=== PATIENT | female | born 1980 | race Caucasian/White ===

== ENCOUNTER 2022-07-21 08:35 | Outpatient (CLI) | payer BC, OTHER, SELFPAY ==
[2022-07-21 19:03] LABS: Basophils Percent Auto 0.5 % (0.2-1.2); Eosinophils Absolute Auto 0.2 K/mm3 (0-0.3); Eosinophils Percent Auto 2.6 % (0-4.4); Hematocrit 43.7 % (37.0-47.0); Hemoglobin 13.8 g/dL (12.0-15.0); Hemoglobin A1C 5.5 % (<5.7); Immature Granulocyte Absolute 0.01 K/mm3 (0.00-0.031); Immature Granulocyte Percent A 0.1 % (0-0.5); Lymphocytes Absolute Auto 1.95 K/mm3 (0.9-3.2); Lymphocytes Percent Auto 22.1 % (18.3-44.2); Mean Corpuscular HGB Conc 31.6 g/dl (32-36); Mean Corpuscular Hemoglobin 29.9 pg (26-34); Mean Corpuscular Volume 94.6 fl (80-100); Mean Platelet Volume 9.5 fl (7.4-10.4); Monocytes Absolute Auto 0.4 K/mm3 (0.1-0.6); Monocytes Percent Auto 4.5 % (2.6-8.5); Neutrophils Absolute Auto 6.2 K/mm3 (1.3-6.7); Neutrophils Percent Auto 70.2 % (45.5-73.1); Platelet Count Result 234 k/mm3 (150-375); Red Blood Count 4.62 M/mm3 (4.2-5.4); White Blood Count 8.8 K/mm3 (4.5-10.0)
[2022-07-21 20:07] LABS: Alanine Aminotransferase 19 U/L (6-35); Albumin Level 4.4 g/dL (3.5-5.1); Alkaline Phosphatase 82 U/L (38-126); Anion Gap 12 mmol/L (8-16); Aspartate Amino Transferase 20 U/L (14-36); Bilirubin,Total 0.6 mg/dL (0.2-1.3); Blood Urea Nitrogen 12 mg/dL (7-17); Calcium 8.9 mg/dL (8.4-10.2); Carbon Dioxide 22 mmol/L (22-30); Chloride 104 mmol/L (98-107); Cholesterol 196 mg/dL (0-200); Estimated Glomerular Filt Rate > 60; Glucose 88 mg/dL (65-110); HDL Direct 52 mg/dL; Potassium 3.7 mmol/L (3.4-5.0); Sodium 138 mmol/L (137-145); Triglycerides 212 mg/dL (<150)
[2022-07-21 20:19] LABS: LDL Cholesterol Direct 106 mg/dL
[2022-07-21 20:37] LABS: Thyroid Stimulating Hormone 0.635 uIU/mL (0.465-4.680)
== END 2022-07-21 08:36 | disposition home or self-care (01) ==
LOC: ANHGOSHLAB 08:39
PROVIDERS: PCP Family Medicine; Visit Provider Family Medicine
DX: R53.83 Other fatigue (principal); Z00.00 Encounter for general adult medical examination without abnormal findings
CPT/HCPCS: 36415; 80053; 80061; 82607; 83036; 84443; 85025

== ENCOUNTER 2023-09-02 09:04 | Outpatient (CLI) | payer BC, SELFPAY ==
[2023-09-02 12:04] LABS: Basophils Percent Auto 0.7 % (0.2-1.2); Eosinophils Absolute Auto 0.2 K/mm3 (0-0.3); Eosinophils Percent Auto 4.6 % (0-4.4); Hematocrit 41.4 % (37.0-47.0); Hemoglobin 13.9 g/dL (12.0-15.0); Immature Granulocyte Absolute 0.01 K/mm3 (0.00-0.031); Immature Granulocyte Percent A 0.2 % (0-0.5); Lymphocytes Absolute Auto 1.54 K/mm3 (0.9-3.2); Lymphocytes Percent Auto 33.8 % (18.3-44.2); Mean Corpuscular HGB Conc 33.6 g/dl (32-36); Mean Corpuscular Hemoglobin 31.2 pg (26-34); Mean Platelet Volume 9.7 fl (7.4-10.4); Monocytes Absolute Auto 0.4 K/mm3 (0.1-0.6); Monocytes Percent Auto 8.6 % (2.6-8.5); Neutrophils Absolute Auto 2.4 K/mm3 (1.3-6.7); Neutrophils Percent Auto 52.1 % (45.5-73.1); Platelet Count Result 236 k/mm3 (150-375); Red Blood Count 4.45 M/mm3 (4.2-5.4); Red Cell Distribution Width 12.9 % (11.5-14.5); White Blood Count 4.6 K/mm3 (4.5-10.0)
[2023-09-02 12:08] LABS: Alanine Aminotransferase 31 U/L (6-35); Albumin Level 4.2 g/dL (3.5-5.1); Alkaline Phosphatase 77 U/L (38-126); Anion Gap 11 mmol/L (8-16); Aspartate Amino Transferase 37 U/L (14-36); Blood Urea Nitrogen 17 mg/dL (7-17); Calcium 9.2 mg/dL (8.4-10.2); Carbon Dioxide 25 mmol/L (22-30); Chloride 104 mmol/L (98-107); Cholesterol 182 mg/dL (0-200); Estimated Glomerular Filt Rate > 60; Glucose 93 mg/dL (65-110); HDL Direct 40 mg/dL; Potassium 4.2 mmol/L (3.4-5.0); Sodium 140 mmol/L (137-145); Triglycerides 90 mg/dL (<150)
[2023-09-02 12:19] LABS: LDL Cholesterol Direct 100 mg/dL
== END 2023-09-02 09:05 | disposition home or self-care (01) ==
LOC: ANHGOSHLAB 09:05
PROVIDERS: PCP Family Medicine; Visit Provider Family Medicine
DX: R53.83 Other fatigue (principal)
CPT/HCPCS: 36415; 80053; 80061; 82607; 82728; 84443; 85025

== ENCOUNTER 2024-07-25 15:47 | Observation (INO) | payer OTHER, SELFPAY ==
--- NOTE | ~2024-07-25 | CT_ITS ---
EXAMINATION: CT abdomen pelvis w con DATE: 07/25/2024 17:02 INDICATION: Abdominal pain. TECHNIQUE: Computed tomography (CT) of the abdomen and pelvis was performed with 100 mL Omnipaque 350 intravenous contrast. Automated exposure control and iterative reconstruction technique were employe d. The dose-length product was 440.40 mGy-cm. COMPARISON: CT abdomen and pelvis 03/13/2015 FINDINGS: The visualized portions of the lung bases demonstrate mild atelectasis. No pleural effusion . The heart size is normal. No pericardial effusion. There is a 4 mm cyst in the liver. The gallbladd er, spleen, pancreas, adrenal glands, and kidneys are normal. The appendix is fluid-filled and dilate d to 13 mm, consistent with acute appendicitis. There are no pathologically enlarged lymph nodes. The re is physiologic fluid in the pelvis. There is mild thoracic and lumbar spondylosis. IMPRESSION: 1. Acute appendicitis. Reviewed, dictated and finalized at location A. IMPRESSION: 1. Acute appendicitis.
[2024-07-25 15:52] VITALS: BP 113/59; PULSE 64; RESP 16; TEMP 36.5; O2SAT 100
[2024-07-25 16:24] LABS: Basophils Percent Auto 0.1 % (0.2-1.2); Eosinophils Percent Auto 0.1 % (0-4.4); Hematocrit 42.2 % (37.0-47.0); Hemoglobin 14.4 g/dL (12.0-15.0); Immature Granulocyte Absolute 0.04 K/mm3 (0.00-0.031); Immature Granulocyte Percent A 0.3 % (0-0.5); Lymphocytes Absolute Auto 0.72 K/mm3 (0.9-3.2); Lymphocytes Percent Auto 5.1 % (18.3-44.2); Mean Corpuscular HGB Conc 34.1 g/dl (32-36); Mean Corpuscular Volume 90.8 fl (80-100); Mean Platelet Volume 9.4 fl (7.4-10.4); Monocytes Absolute Auto 0.3 K/mm3 (0.1-0.6); Neutrophils Absolute Auto 13.1 K/mm3 (1.3-6.7); Neutrophils Percent Auto 92.4 % (45.5-73.1); Platelet Count Result 219 k/mm3 (150-375); Red Blood Count 4.65 M/mm3 (4.2-5.4); Red Cell Distribution Width 12.8 % (11.5-14.5); White Blood Count 14.2 K/mm3 (4.5-10.0)
[2024-07-25 16:25] VITALS: BP 137/81; PULSE 56; RESP 14; O2SAT 100
[2024-07-25 16:28] LABS: BEDSIDEPREGUCG Negative (Negative)
[2024-07-25 16:35] LABS: Add Urine Microscopic? YES; Appearance Urine Turbid (Clear); Bacteria Urine None Seen /hpf; Bilirubin Urine Negative (Negative); Blood Urine Negative (Negative); Color Urine Yellow (Yellow); Glucose Urine UA Negative (Negative); Ketones Urine 3+ mg/dL (Negative); Leukocyte Esterase Ur Negative LEU/UL (Negative); Nitrate Urine Negative (Negative); Non Pathogenic Casts 0-2; Protein Urine Trace mg/dL (Negative); Specific Grav Ur 1.019 (1.001-1.035); Squamous Epithelial Cell Urine Few /hpf (Few); Urobilinogen Urine 0.2 mg/dL (<2.0); WBC Urine 0-5 /hpf (0-3); pH Urine 8.5 (5.0-9.0)
[2024-07-25 16:37] LABS: Alanine Aminotransferase 20 U/L (6-35); Albumin Level 4.6 g/dL (3.5-5.1); Alkaline Phosphatase 83 U/L (38-126); Anion Gap 12 mmol/L (4-12); Aspartate Amino Transferase 27 U/L (14-36); Bilirubin,Total 0.9 mg/dL (0.2-1.3); Blood Urea Nitrogen 15 mg/dL (7-17); Calcium 9.3 mg/dL (8.4-10.2); Carbon Dioxide 26 mmol/L (22-30); Chloride 100 mmol/L (98-107); Estimated CRCL calculation 97 ml/min; Estimated Glomerular Filt Rate > 60; Glucose 145 mg/dL (65-110); Lipase 77 U/L (23-300); Potassium 3.7 mmol/L (3.4-5.0); Prothrombin Time 13.4 Seconds (11.1-14.7); Sodium 138 mmol/L (137-145)
[2024-07-25 16:38] LABS: Partial Thromboplastin Time 22.7 Seconds (22.3-36.8)
--- NOTE | 2024-07-25 16:48 | ED.GENADULT ---
HPI - General Adult General Chief complaint: Abdominal Pain Stated complaint: abdominal pain Time Seen by Provider: 07/25/24 16:00 History of Present Illness HPI narrative: 44-year-old female presenting to the emergency department for evaluation for worsening periumbilical abdominal pain. Patient states she began having pain earlier today and the pain has worsened. Patient states he did try some Tums and this did not help. Patient also had associated nausea and vomiting. Patient denies any prior history of abdominal surgeries. She does have prior history of kidney stones. Patient denies any prior history gastritis or esophagitis. Patient does have history of aortic stenosis with a bicuspid aortic valve but patient has not had any valve repair. Coarctation of aorta at age 7. Related Data Home Medications Medication Instructions Recorded Confirmed No Home Medications 06/28/24 07/25/24 Allergies Allergy/AdvReac Type Severity Reaction Status Date / Time No Known Allergies Allergy Verified 07/25/24 16:12 Review of Systems Review of Systems: All systems reviewed & are unremarkable except as noted in HPI and below PMFSH Past Medical History Medical History Bicipital tendonitis of right shoulder Coarctation of aorta s/p end to end anastomosis repair 1987, at age 7 2014 normal brai MRA 2015 MRA chest: no evidence of aortic dilatation nor residual coarctation Former cigarette smoker quit 2009 Lateral epicondylitis of right elbow Social History Social History Social History: Caffeine-coffee daily Smoking packs per day: 1 Smoking cigarettes per day: 20.0 Years smoked: 12 Smoking pack-years: 12.00 Smoking status: Former smoker Second hand tobacco smoke exposure: Yes Alcohol intake: never Substance use: never Substance use type: does not use Do You Feel Safe in your Home?: Yes Lack of Transportation: No Lack of Food: Never True Current Housing: I Have Housing Concerned About Future Housing: No Difficulty Paying Gas/Electric Bills: No Difficulty Paying for Meds: No Currently Unemployed: No Education: Associate Degree Difficulty w/ Childcare or Family Care: No Spiritual care concerns: No Exam Narrative: APPEARANCE: Well appearing, no pain, no distress, well-nourished. HEAD: normocephalic, atraumatic. EYES: PERRLA/EOMI, conjunctivae clear. NOSE: Normal no drainage EARS:TMS clear with good light reflex. THROAT: Pharynx clear, no exudate. NECK: Supple. No adenopathy, no masses. RESPIRATORY: Airway patent, respirations nonlabored. Clear to auscultation bilaterally, no rales, rhonchi, wheezing. CARDIOVASCULAR: Regular rate and rhythm without murmurs rubs or gallops. ABDOMINAL: Periumbilical tenderness to palpation MUSCULOSKELETAL: Moves all extremities. Strength/ROM intact, No edema, No calf tenderness. NEURO: Alert. Cranial nerves II through XII intact. Good gait. Good coordination SKIN: Warm, dry. Normal Color Course Vital Signs Vital signs: Vital Signs Temperature 97.7 F 07/25/24 15:52 Pulse Rate 64 07/25/24 15:52 Respiratory Rate 16 07/25/24 15:52 Blood Pressure 113/59 L 07/25/24 15:52 Pulse Oximetry 100 07/25/24 15:52 Oxygen Delivery Room Air 07/25/24 15:52 Temperature 97.9 F 07/25/24 18:32 Pulse Rate 72 07/25/24 18:32 Respiratory Rate 15 07/25/24 18:32 Blood Pressure 119/78 07/25/24 18:32 Pulse Oximetry 100 07/25/24 18:32 Oxygen Delivery Room Air 07/25/24 15:52 Medical Decision Making [facility] Narrative Medical decision making narrative: 44-year-old female presents to the emergency department for evaluation for worsening periumbilical abdominal pain. Patient is afebrile but does have a leukocytosis of 14.2 stable hemoglobin 14.4. Patient has no acute abnormalities on her CMP UA shows no e
[2024-07-25] MEDS: SODIUM CHLORIDE 0.9% IV 1,000 ML 999 ML IV CONT (18:25)
[2024-07-25 18:32] VITALS: BP 119/78; PULSE 72; RESP 15; TEMP 36.6; O2SAT 100
[2024-07-25 18:35] VITALS: BMI 25.5
--- NOTE | 2024-07-25 18:36 | PC.NURSE ---
This patient, Shante Bay, was admitted to Medical Room 250-01. Patient/family oriented to hospital policies and general routines including ID bracelet, bed and alarms, visiting hours, pain management, procedures, bathroom and other care routines, personal items, smoking policy, room service/diet, and visiting hours. Information on how to activate the Rapid Response Team has been discussed. Patient/Family are encouraged to report perceived risks to care and to ask questions if they do not understand what they are told or what they should do.
--- NOTE | 2024-07-25 18:50 | PC.NURSE ---
RN non-admin IV Zosyn due to second set of blood cultures being unable to obtain. Waiting for lab to receive second set at this time.
--- NOTE | 2024-07-25 19:41 | PC.NURSE ---
One time dose of Zosyn not given in ER, as they were unable to collect 1/2 set of blood cultures. Patient arrived to floor & Second blood culture collected & one time dose of Zosyn re-ordered as per Dr Fregoso's order in ER. Spoke with Dr Fregoso to verify this was his intended order: to give one time dose after blood cultures collected.
[2024-07-25] MEDS: PIPERACILLN/TAZ 3.375GM/NS50ML 3.375 GM/50 ML BAG IVPB (20:28)
[2024-07-25] MEDS: ONDANSETRON INJ 4 MG/2 ML VIAL IV PUSH (20:28)
[2024-07-25 21:45] VITALS: BP 101/60; PULSE 79; RESP 18; TEMP 36.8; O2SAT 100
[2024-07-26] VITALS (15 sets, daily range): BP systolic 82–137; BP diastolic 48–72; PULSE 40–78; RESP 12–18; TEMP 36.4–36.7; O2SAT 96–100
[2024-07-26] MEDS: PIPERACILLN/TAZ 3.375GM/NS50ML 3.375 GM/50 ML BAG IVPB ×2 (02:25→09:00)
--- NOTE | 2024-07-26 07:15 | PC.NURSE ---
Addendum entered by Melissa Roach RN 07/26/24 12:19: Report given to Saleem STEINBERG. Original Note: Patient off floor to OR via wheelchair.
[2024-07-26] MEDS: LACTATED RINGERS 1,000 ML 30 ML IV CONT ×2 (07:30→11:31)
--- NOTE | 2024-07-26 09:04 | PM.IMHP ---
H&P: HPI History of Present Illness Date/Time: 07/26/24 09:04 Chief Complaint: Abdominal pain Narrative: This is a 44-year-old woman who presented to the ED with complaints of epigastric abdominal pain. She reports yesterday waking up feeling well. She tried taking Emergen-C and after developed epigastric abdominal pain. She initially thought it was related to reflux. The pain persisted throughout the day. She then developed nausea and NBNB vomiting. In the ED, workup showed CT evidence of acute appendicitis. She was admitted and started on IV antibiotics. Only previous abdominal surgery is . She reports her pain has changed overnight and she is now feeling lower abdominal pain and reports feeling tender all over. No other complaints at this time. Review of Systems Review of Systems: All systems reviewed & are unremarkable except as noted in HPI and below PMFSH Past Medical History Medical History (Updated 07/26/24 @ 09:12 by DARRELL Avery) Bicipital tendonitis of right shoulder Coarctation of aorta s/p end to end anastomosis repair 1987, at age 7 2014 normal brai MRA 2014 MRA chest: no evidence of aortic dilatation nor residual coarctation Former cigarette smoker quit 2008 Lateral epicondylitis of right elbow Surgical History Surgical History (Updated 07/26/24 @ 09:09 by DARRELL Avery) History of delivery Hx of aortic coarctation repair Social History Social History Social History: Caffeine-coffee daily Smoking packs per day: 1 Smoking cigarettes per day: 20.0 Years smoked: 12 Smoking pack-years: 12.00 Smoking status: Former smoker Second hand tobacco smoke exposure: Yes Alcohol intake: never Substance use: never Substance use type: does not use Do You Feel Safe in your Home?: Yes Lack of Transportation: No Lack of Food: Never True Current Housing: I Have Housing Concerned About Future Housing: No Difficulty Paying Gas/Electric Bills: No Difficulty Paying for Meds: No Currently Unemployed: No Education: Associate Degree Difficulty w/ Childcare or Family Care: No Spiritual care concerns: No Meds Home Medications and Allergies Home Medications Medication Instructions Recorded Confirmed Type No Home Medications 06/28/24 07/25/24 History Allergies Allergy/AdvReac Type Severity Reaction Status Date / Time No Known Allergies Allergy Verified 07/25/24 16:12 Vital Signs Vital Signs - 24 hr 07/25/24 15:52 07/25/24 16:25 07/25/24 18:32 Temperature 97.7 F 97.9 F Pulse Rate 64 56 L 72 Respiratory Rate 16 14 15 Blood Pressure 113/59 L 137/81 119/78 Pulse Oximetry 100 100 100 Oxygen Delivery Room Air 07/25/24 21:45 07/25/24 20:00 07/26/24 06:00 Temperature 98.2 F 98.0 F Pulse Rate 79 66 Respiratory Rate 18 18 Blood Pressure 101/60 118/62 Pulse Oximetry 100 99 Oxygen Delivery Room Air 07/26/24 07:00 Temperature Pulse Rate Respiratory Rate Blood Pressure Pulse Oximetry Oxygen Delivery Room Air Exam Const: General: comfortable and no acute distress Nutritional Appearance: average body habitus Orientation/consciousness: patient oriented x3 HENMT: Head: normocephalic and atraumatic Ears: hearing grossly normal bilaterally Mouth: Yes moist mucous membranes Eyes: General: appearance normal, both eyes and all related structures Pupils: Equal, round and reactive pupils present Neck: Neck: normal visual inspection and full ROM Resp: Effort & Inspection: no respiratory distress Auscultation: clear to auscultation bilaterally Cardio: Rate: regular rate Rhythm: regular rhythm Heart sounds: S1 normal heart sound present and S2 normal heart sound present Peripheral pulses: Peripheral pulses 2+ throughout GI: Inspection: non-distended and no visible herniation GI Palp: Yes Soft to palpation, Yes Tenderness to palpation pre
--- NOTE | 2024-07-26 09:11 | WPDANESEPPF ---
Anes - Initial Pre Proc Eval Procedure: Operation Date: 07/26/24 08:30 Proposed Procedures p Laparoscopic Appendectomy - Micki Mclaughlin MD Date/Time: 07/26/24 09:11 Surgeon: Micki Mclaughlin MD Pre Op Diagnosis: Acute appendicitis Patient Data Age: 44 Gender: F Height: 1.68 m Weight: 71.8 kg Last Vital Signs Temp 36.7 C 07/26/24 06:00 Pulse 66 07/26/24 06:00 Resp 18 07/26/24 06:00 BP 118/62 07/26/24 06:00 Pulse Ox 99 07/26/24 06:00 O2 Del Method Room Air 07/26/24 07:00 Allergies Allergy/AdvReac Type Severity Reaction Status Date / Time No Known Allergies Allergy Verified 07/25/24 16:12 Home Medications Medication Instructions Recorded Confirmed Type No Home Medications 06/28/24 07/25/24 History Laboratory Tests 07/25/24 07/25/24 07/25/24 16:18 16:25 16:26 WBC 14.2 H K/mm3 (4.5-10.0) RBC 4.65 M/mm3 (4.2-5.4) Hgb 14.4 g/dL (12.0-15.0) Hct 42.2 % (37.0-47.0) MCV 90.8 fl (80-100) MCH 31.0 pg (26-34) MCHC 34.1 g/dl (32-36) RDW 12.8 % (11.5-14.5) Plt Count 219 k/mm3 (150-375) MPV 9.4 fl (7.4-10.4) Immature Gran % (Auto) 0.3 % (0-0.5) Neut % (Auto) 92.4 H % (45.5-73.1) Lymph % (Auto) 5.1 L % (18.3-44.2) [place] % (Auto) 2.0 L % (2.6-8.5) Eos % (Auto) 0.1 % (0-4.4) Baso % (Auto) 0.1 L % (0.2-1.2) Lymph # (Auto) 0.72 L K/mm3 (0.9-3.2) [place] # (Auto) 0.3 K/mm3 (0.1-0.6) Eos # (Auto) 0.0 K/mm3 (0-0.3) Baso # (Auto) 0.0 K/mm3 (0.0-0.1) Abs Immat Gran (auto) 0.04 H K/mm3 (0.00-0.031) Absolute Neuts (auto) 13.1 H K/mm3 (1.3-6.7) Absolute Nucleated RBC 0.000 K/mm3 (0.0-0.012) Nucleated RBC % 0.0 % (0.0-0.2) PT 13.4 Seconds (11.1-14.7) INR 1.0 APTT 22.7 Seconds (22.3-36.8) Sodium 138 mmol/L (137-145) Potassium 3.7 mmol/L (3.4-5.0) Chloride 100 mmol/L (98-107) Carbon Dioxide 26 mmol/L (22-30) Anion Gap 12 mmol/L (4-12) BUN 15 mg/dL (7-17) Creatinine 0.60 L mg/dL (0.7-1.0) Estim Creat Clear Calc 97 ml/min Estimated GFR > 60 (59 - ) Glucose 145 H mg/dL (65-110) Calcium 9.3 mg/dL (8.4-10.2) Total Bilirubin 0.9 mg/dL (0.2-1.3) AST 27 U/L (14-36) ALT 20 U/L (6-35) Alkaline Phosphatase 83 U/L (38-126) Total Protein 8.0 g/dL (6.3-8.2) Albumin 4.6 g/dL (3.5-5.1) Lipase 77 U/L (23-300) Urine Color Yellow (Yellow) Urine Appearance Turbid H (Clear) Urine pH 8.5 (5.0-9.0) Ur Specific [place] 1.019 (1.001-1.035) Urine Protein Trace mg/dL (Negative) Urine Glucose (UA) Negative mg/dL (Negative) Urine Ketones 3+ H mg/dL (Negative) Ur Blood (Man) Negative (Negative) Urine Nitrate Negative (Negative) Urine Bilirubin Negative (Negative) Urine Urobilinogen 0.2 mg/dL (<2.0) Leukocyte Esterase Rfl Negative SEB/UL (Negative) Urine RBC 3-5 H /hpf (0-2) Urine WBC 0-5 /hpf (0-3) Ur Squamous Epith Cells Few /hpf (Few) Urine Bacteria None seen /hpf Urine Casts 0-2 POC Urine HCG, Qual Negative (Negative) Patient hx anesthesia problems: none Family hx anesthesia problems: none Results Review: All pre-operative results and documents have been reviewed as part of the pre-operative evaluation. [facility] Past Medical History Medical History Bicipital tendonitis of right shoulder Coarctation of aorta s/
--- NOTE | 2024-07-26 09:38 | WPDHPUPDATE1 ---
History and Physical Update Update Date/Time: 07/26/24 09:38 History and Physical has been reviewed, including an updated exam of the patient. There are NO changes in the patient's condition. Risks, benefits, and alternatives have been discussed and questions answered. Patient agrees to proceed with procedure.
[2024-07-26] MEDS: BUPIVACAINE/EPINEPHRINE 0.5% 50 ML VIAL 30 ML INFILTRATE (10:08)
--- NOTE | 2024-07-26 10:21 | W.PM.PROC2 ---
Procedure Note - Detailed Date of Procedure 07/26/24 Pre-op Diagnosis Acute appendicitis Post-op Diagnosis Same Procedure Performed laparoscopic appendectomy Surgeon Micki Mclaughlin MD Anesthesia General Indications 44-year-old female presenting to the emergency department complaining lower abdominal pain. Workup, including CT, significant for acute appendicitis. Findings acute appendicitis no evidence of perforation Description of Procedure The patient was taken to the operating room and placed in the supine position. After adequate induction of general anesthesia, the patient was prepped and draped in the normal sterile fashion. A time-out was then done to verify the patient's identity, as well as the procedure being performed. I began by making a 5 mm incision in the infraumbilical region, through this a Veress needle was placed in the peritoneal cavity. CO2 gas was then insufflated and after adequate pneumoperitoneum was achieved the Veress needle was removed. Then placed a 5 mm Optiview trocar under direct visualization into the peritoneal cavity. I then insufflated through this trocar site and the endoscope was placed into the trocar. Under direct visualization, I placed 2 further ports, a 5 mm suprapubic port, as well as an additional 12 mm port in the left lower abdomen. At this point identified the cecum, I retracted the cecum both medially and superiorly allowing me to expose the appendix. The appendix was noted to be dilated and inflamed. The appendix was noted to be very adherent to the right lateral sidewall as well as the ileum. I was able to bluntly dissect the appendix from these adhesions. I then was able to locate the base of the appendix with the cecum. I created a window with the [place] dissector between the appendix itself and the mesoappendix. I then transected the mesoappendix with a white vascular staple load. The Endo-MARINO was then reloaded with a blue staple load and I transected the base of the appendix. Once the specimen was completely detached, an endo-pouch was placed into the 12 mm port site and the specimen was removed through the endo-pouch. The appendiceal specimen will be sent to pathology for further review. I then copiously irrigated the right lower quadrant. Hemostasis was noted at both staple lines no other pathology was seen in this area. I then moved the camera to the suprapubic port to check our its port of entry. No iatrogenic injury or other pathology was noted in the upper abdomen. I then closed the 12 mm port site with a Darnell code and 0 Vicryl suture under direct visualization. At this point, the abdomen was desufflated and all ports were removed. All port sites were closed with 4 Monocryl subcuticular suture. Dermabond was placed on all wounds. The patient tolerated the procedure well and was extubated in the operating room postop. He will be sent to the recovery room in stable condition. Estimated Blood Loss 10 Drains No Packing No Pathology Yes Complications No immediate complications Condition Stable Disposition PACU [facility] Billing Surgery - Charge Forward: Surgery Billing
--- NOTE | 2024-07-26 10:41 | SUR.PHASEI ---
1040: Simple mask removed.
[2024-07-26] MEDS: fentaNYL CITRATE INJ (*CRX) 100 MCG/2 ML VIAL 25 MCG IV PUSH ×2 (11:03→11:06)
--- NOTE | 2024-07-26 11:13 | SUR.PHASEI ---
Dr. Santana aware of low heart rate and low BP. No treatment at this time.
--- NOTE | 2024-07-26 11:59 | SUR.PHASEI ---
Dr. Santana aware that patient is still sustaining a HR in 40s and going back to the floor. No treatment at this time.
--- NOTE | 2024-07-26 12:10 | PC.NURSE ---
Patient returned to the floor via stretcher from OR. Report received from Dominga STEINBERG. No patient complaints at this time.
[2024-07-26] MEDS: IBUPROFEN 400 MG TABLET 800 MG PO (14:06)
--- NOTE | 2024-07-26 16:11 | PM.DS ---
DS: Admitting Diagnosis Discharge Date 07/26/24 Admitting Diagnosis Acute appendicitis DS: Discharge Diagnosis Discharge Diagnosis (1) Acute appendicitis: Qualifiers: Acute appendicitis type: unspecified acute appendicitis type Qualified Code(s): K35.80 - Unspecified acute appendicitis Code(s): K35.80 - Unspecified acute appendicitis Status: Acute Assessment and Plan: status post laparoscopic appendectomy, doing well, routine postoperative care, prescription sent for Lydia and Colace, follow-up 2 weeks DS: Summary Hospital Course Reason for hospitalization: acute appendicitis Hospital Course: The patient is a 44-year-old female presenting to the emergency department complaining of right lower quadrant abdominal pain. Workup in the emergency department, including CT scan, was significant for acute appendicitis. Given these findings, the patient was admitted to the surgical service. She was made NPO and started on IV antibiotics. Upon evaluation, the decision was made for urgent appendectomy. The patient was taken to the operating room and laparoscopic appendectomy was performed. Please see full operative report for details of that procedure. Postoperatively, the patient did well and was transferred to the surgical floor. Upon evaluation this afternoon, the patient was tolerating a diet and up and ambulating without difficulty. Her pain was well controlled with p.o. analgesia. She will be discharged home with instructions for routine postoperative care. She will be sent prescription for Lydia and Colace. She will follow-up with me in 2 weeks. Status at Discharge Functional status at discharge: independent ambulation Overall status at discharge: patient is progressing back to baseline Time Spent with Patient Time attestation: Total time spent providing and/or coordinating discharge services: Time spent: Less than 30 minutes Exam Const: General: cooperative, comfortable and no acute distress Resp: Auscultation: clear to auscultation bilaterally Cardio: Rate: regular rate Rhythm: regular rhythm GI: Inspection: normal to inspection, distended and incision GI Palp: Yes abdominal tenderness and Yes Soft to palpation DS: Data Data Completed and Pending Pending studies at discharge: Pending at discharge 07/26/24 10:09 Surgical [PTH] Routine Labs on day of discharge: Labs from last 24 hours 07/25/24 07/25/24 07/25/24 16:26 16:25 16:18 WBC 14.2 H RBC 4.65 Hgb 14.4 Hct 42.2 MCV 90.8 MCH 31.0 MCHC 34.1 RDW 12.8 Plt Count 219 MPV 9.4 Immature Gran % (Auto) 0.3 Neut % (Auto) 92.4 H Lymph % (Auto) 5.1 L [place] % (Auto) 2.0 L Eos % (Auto) 0.1 Baso % (Auto) 0.1 L Lymph # (Auto) 0.72 L [place] # (Auto) 0.3 Eos # (Auto) 0.0 Baso # (Auto) 0.0 Abs Immat Gran (auto) 0.04 H Absolute Neuts (auto) 13.1 H Absolute Nucleated RBC 0.000 Nucleated RBC % 0.0 PT 13.4 INR 1.0 APTT 22.7 Sodium 138 Potassium 3.7 Chloride 100 Carbon Dioxide 26 Anion Gap 12 BUN 15 Creatinine 0.60 L Estim Creat Clear Calc 97 Estimated GFR > 60 Glucose 145 H Calcium 9.3 Total Bilirubin 0.9 AST 27 ALT 20 Alkaline Phosphatase 83 Total Protein 8.0 Albumin 4.6 Lipase 77 Urine Color Yellow Urine Appearance Turbid H Urine pH 8.5 Ur Specific [place] 1.019 Urine Protein Trace Urine Glucose (UA) Negative Urine Ketones 3+ H Ur Blood (Man) Negative Urine Nitrate Negative Urine Bilirubin Negative Urine Urobilinogen 0.2 Leukocyte Esterase Rfl Negative Urine RBC 3-5 H Urine WBC 0-5 Ur Squamous Epith Cells Few Urine Bacteria None seen Urine Casts 0-2 POC Urine HCG, Qual Negative Preliminary micro results at discharge 07/25/24 18:20 Blood Culture - Preliminary Blood Discharge Plan Discharge Atte
== END 2024-07-26 14:55 | disposition home or self-care (01) ==
LOC: ANHED 16:06 → ANH2MED 18:05
PROVIDERS: Admitting Provider Surgery; Emergency Provider Emergency Medicine; PCP Family Medicine; Visit Provider Surgery
PROC: 0DTJ4ZZ Resection of Appendix, Percutaneous Endoscopic Approach (ICD-10-PCS; CPT 44970; principal; 2024-07-26 08:30)
DX: K35.80 Unspecified acute appendicitis (principal); K38.8 Other specified diseases of appendix; I35.0 Nonrheumatic aortic (valve) stenosis; Q23.81 Bicuspid aortic valve; Z98.890 Other specified postprocedural states; M75.21 Bicipital tendinitis, right shoulder; M77.11 Lateral epicondylitis, right elbow; Z87.891 Personal history of nicotine dependence; Z87.442 Personal history of urinary calculi
CPT/HCPCS: 44970; 36415; 74177; 80053; 81001; 81025; 83690; 85025; 85610; 85730; 87040; 88304; 99285; A9270; G0378; J1100; J1171; J2250; J2270; J2405; J2543; J2704; J3010; J7030; J7120; Q9967

== ENCOUNTER 2025-07-20 09:03 | Outpatient (NON) | payer OTHER, SELFPAY ==
--- NOTE | 2025-07-20 | S_PTH ---
PATIENT: [place] LOC: ANHLAB #:[id number] AGE/SX: 45/F ROOM: RE07/20/[address]: Jory Paredes MD : 1980 BED: DIS: 07/20/2025 SPEC #: [id number] RECD: 07/21/25 10:09 STATUS: PAM REQ #: [id number] TIMO: 07/20/25 00:[address]: Jory Paredes DEPT: [facility] Surgical RECD BY: Angie Felix Tissues: A - Biopsy Procedures: Hematoxylin and Eosin Stain Gross and Microscopic Level 4
--- OUTSIDE RECORDS SUMMARY | 2025-07-21 09:23 | XMS_ITS | Encounter Summary ---
Author Organization [facility] Address [address] [place] [address] [place] [address] Care Team Providers Care Concrete Floater Name Role Phone Unavailable Primary Care Provider Unavailabl e Reason for Visit * Reason Onset Date Comments Appointment 08/04/2014 Called patient t o get additional information for registration. Patient notified me that she was not aware that appointment hadn't been cancelled because she spoke with Dr. Peguero a few days ago and was told everything was changed to Dr. Peguero's office to be done. Encounter Details Date Type Department Care Team (Late Contact Info) Description 08/04/2014 Telephone [facility] [address] [place] [id number] Angela Yang Appointment (Called patient to get additional information for registration. Patient notified me that she was not aware that appointment hadn't been cancelled because she spoke with Dr. Peguero a few days ago and was told everything was changed to Dr. Peguero's office to be done.) Social History Tobacco Use Types Packs/Day Years Used Date Smoking Tobacco: Never Assessed Comments Yes Sex and Gender Information Value Date Recorded Sex Assigned at Not on file Legal Sex Female 1:53 PM CDT Gender Identity Not on file Sexual Orientation Not on file documented as of this encounter Plan of Treatment Not on file documented as of this encounter Visit Diagnoses Not on filedocumented in this encounter
--- OUTSIDE RECORDS SUMMARY | 2025-07-21 09:23 | XMS_ITS | Encounter Summary ---
Author Organization [facility] Healthcare Address [address] [place] [address] Care Team Providers Care Clay Worker Name Role Phone Desmond Harmon MD Primary Care Provider [phone] Alvina Alarcon MD Unavailable [phone] Jory Paredes MD Primary Care Provider + Encounter Details Date Type Department Care Team (Late st Contact Info) Description 03/26/2021 Telephone [facility] [address] [place], [place] [id number] Maggie Schumacher, RT Social History Tobacco Use Types Packs/Day Years Used Date Smoking Tobacco: Former Smokeless Tobacco: Never Comments Unknown Sex and Gender Information Value Date Recorded Sex Assigned at Not on file 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 Gender Identity Not on file Sexual Orientation Not on file documented as of this encounter Plan of Treatment Not on file documented as of this encounter Visit Diagnoses Not on filedocumented in this encounter Care Teams Clay Worker Relationship Specialty Start Date End Date Desmond Harmon MD [address] [place] [address] PCP - General 03/19/17 08/30/24 Jory Paredes MD [address] [place] [address] [place] [address] PCP - General Family Medicine 08/31/24 Alvina Alarcon MD [address] [place] [address] Referring Physician Cardiology 09/30/18 documented as of this encounter
--- OUTSIDE RECORDS SUMMARY | 2025-07-21 09:23 | XMS_ITS | Clinical Summary ---
Author Organization [facility] Address [facility] [place] [address] Care Team Providers Care Underground Foreman Name Role Phone Unavailable Primary Care Provider Unavailabl e Source Comments [facility],non-[facility] Affiliates and Associated Physician Practices is amultiple site organization consisting of ambulatory clinics and hospital sitesin [place], [place], [place] and [place]. This disclosure is being madepursuant to the Care Everywhere program and may not contain all information available regarding this patient. Last updated 18.[facility] [employer] Social History Tobacco Use Types Packs/Day Years Used Date Smoking Tobacco: Never Assessed Comments No Sex and Gender Information Value Date Recorded Sex Assigned at Not on file Legal Sex Female 1:53 PM CDT Gender Identity Not on file Sexual Orientation Not on file Plan of Treatment Health Maintenance Due Date Last Done Comments LIPID TESTING 1982 MAMMOGRAM 1982 HIV SCREENING 1997 HEPATITIS C SCREENING 03/20/2000 DTAP/TDAP/TD VACCINES (1 - Tdap) 2001 HEPATITIS B VACCINE (1 of 3 - 19+ 3-dose series) 2001 PAP SMEAR 2003 HPV VACCINE (1 - 3-dose SCDM series) 2009 DEPRESSION SCREENING 10/12/2024 COVID-19 VACCINE ( - 2023-2 5 season) 2025 INFLUENZA VACCINE (#1) 2025 ZOSTER VACCINE (1 of 2) 2032 HIB VACCINE Aged Out No longer eligi ble based on patient's age to complete this topic MENINGOCOCCAL (Group B) VACC INE SHARED DECISION-MAKING Aged Out No longer eligibl e based on patient's age to complete this topic MENINGOCOCCAL GROUPS A/C/Y/W VACCINE Aged Out No longer eligible b ased on patient's age to complete this topic PNEUMOCOCCAL VACCINE Aged Out No long er eligible based on patient's age to complete this topic Insurance [facility] Address: [facility] [address] [place] [address] [facility] Address: [facility] [address] [place] [address] SELF PAY NO INSURANCE Member Subscriber Plan / Payer (Ef fective for All Dates) Name:Shante Grimaldo Member ID:Not on file Relation to Subscriber:Not on file Name:SHANTE GRIMALDO Subscriber ID:Not on file (Home) Address: [address] [place] [address] Payer ID:Not on file Group ID:Not on file Type:Self Pay Address: [place], [place] [employer]
--- OUTSIDE RECORDS SUMMARY | 2025-07-21 09:23 | XMS_ITS | Clinical Summary ---
Author Organization [facility] Address [address] [place] [address] Care Team Providers Care Manager Pharmacy Name Role Phone Alvina Alarcon MD Unavailable [phone] Jory Paredes MD Primary Care Provider + Allergies No known active allergies Medications TRI-SPRINTEC, 28, 0.18/0.215/0.25 mg-35 mcg (28) per tablet Take by mouth daily 09/30/2018 Active Active Problems Problem Noted Date Diagnosed Date Elevated blood pressure reading 04/01/2018 Overview (04/01/2018): Due to repaired coarctation of the aorta Bicuspid aortic valve 04/01/2018 Increased body mass index (BMI) 09/25/2014 09/25/2014 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 Surgical History Surgery Date Site/Laterality Comments AORTIC VALVE SURGERY Medical History Medical History Date Comments Bicuspid aortic valve Family History Medical History Relation Name Comments Heart attack Father Family history of heart attack - (Added by TW Conv) Relation Name Status Comments Father Social History Tobacco Use Types Packs/Day Years Used Date Smoking Tobacco: Former Smokeless Tobacco: Never Comments Unknown Sex and Gender Information Value Date Recorded Sex Assigned at Not on file Legal Sex Female 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 Gender Identity Not on file Sexual Orientation Not on file Obstetrics History Last Filed Vital Signs Vital Sign Reading Time Taken Comments Blood Pressure 128/86 10/10/2024 11:23 AM PAINT LINE OPERATOR Pulse 76 10/10/2024 11:23 AM PAINT LINE OPERATOR Temperature 36.5 C (97.7 F) 03/08/2020 9:17 AM CDT Respiratory Rate - - Oxygen Saturation 99% 10/10/2024 11:23 AM PAINT LINE OPERATOR Inhaled Oxygen Concentration - - Weight 72.1 kg (159 lb) 10/10/2024 11:23 AM PAINT LINE OPERATOR Height 167.6 cm (5' 6) 10/10/2024 11:23 AM PAINT LINE OPERATOR Body Mass Index 25.66 10/10/2024 11:23 AM PAINT LINE OPERATOR Plan of Treatment Health Maintenance Due Date Last Done Comments Breast Cancer Screening-Mammogram 1982 Cervical Cancer Screening 1982 Depression Screening 1982 Hepatitis C Screening 1982 DTaP/Tdap/Td Vaccine (1 - Tdap) 1993 Varicella Vaccines (1 of 2 - 13+ 2-dose series) 1995 Hepatitis B Screening 2000 Regular Well Visit/Exam 18-64 2000 HPV Vaccines (1 - 3-dose SCD M series) 2009 Influenza Vaccine (#1) 2025 06/24/2022 Pneumococcal vaccine <65 Aged Out 06/24/2022 No longer eligible based on patient's age to complete this topic Insurance [facility] [employer] CHO[employer] [facility] H[facility] [place] [employer] [facility] [employer] CHOICE Member Subscriber Plan / Payer (Ef fective 2018-Present) Name:Shante Grimaldo Relation to Subscriber:Self Name:Shante Grimaldo Payer ID:[id number] (NAIC) Type:iCreate Address: [address] HMO [place] ACCESS [facility] Care Teams Manager Pharmacy Relationship Specialty Start Date End Date Jory Paredes MD [address] [place] [address] [place] [address] PCP - General Family Medicine 08/31/24 Alvina Alarcon MD Referring Physician Cardiology 09/30/18
== END 2025-07-20 09:04 | disposition home or self-care (01) ==
LOC: ANHLAB 07-21 09:06
PROVIDERS: PCP Family Medicine; Visit Provider Family Medicine
DX: D22.5 Melanocytic nevi of trunk (principal); D48.5 Neoplasm of uncertain behavior of skin
CPT/HCPCS: 88305

== ENCOUNTER 2025-10-09 14:15 | Outpatient (CLI) | payer OTHER, SELFPAY ==
--- NOTE | ~2025-10-09 | XR_ITS ---
EXAMINATION: XR lumbar spine min 4V DATE: 10/09/2025 14:48 INDICATION: Low back pain TECHNIQUE: Anteroposterior, lateral, and bilateral oblique views of the lumbar spine, and cone-down lateral view of the lumbosacral junction were obtained. COMPARISON: None. FINDINGS: L5 is partially sacralized on the left. 12 degrees lower thoracic dextrocurvature. Sagittal alignment is normal. Vertebral body heights are normal. Mild disc height loss at T10-T11, T11-T12, L4-L5 and L5-S1. No pars interarticularis defects. There is multilevel mild to moderate lumbar facet osteoarthritis. Mild bilateral sacroiliac osteoarthritis. IMPRESSION: 1. 12 degrees lower thoracic dextrocurvature with mild lumbar and lower thoracic spondylosis. Reviewed, dictated and finalized at location A. [employer] [place] IMPRESSION: 1. 12 degrees lower thoracic dextrocurvature with mild lumbar and lower thoraci c spondylosis.
== END 2025-10-09 14:16 | disposition home or self-care (01) ==
PROVIDERS: PCP Family Medicine; Visit Provider Student in an Organized Health Care Education/Training Program
DX: M54.9 Dorsalgia, unspecified (principal); M47.894 Other spondylosis, thoracic region
CPT/HCPCS: 72110; 72170

== ENCOUNTER 2025-10-09 14:23 | Outpatient (NON) | payer OTHER, SELFPAY ==
--- OUTSIDE RECORDS SUMMARY | 2025-10-08 16:45 | XMS_ITS | Encounter Summary ---
Author Organization [facility] Healthcare Address [address] [place] [address] Care Team Providers Care Offset Printing Operator Name Role Phone Alvina Alarcon MD Unavailable [phone] Jory Paredes MD Primary Care Provider + Reason for Visit * Reason Comments Flank Pain Lower back related, going around to the front. Started 1 week go Encounter Details Date Type Department Care Team (Late st Contact Info) Description 10/08/2025 4:45 PM RECREATIONAL RESORT MANAGER Office Visit [facility] at [address] [address] Mandy Walker PA [address] [place] [address] [address] [place] [address] Acute low back pain without sciatica, unspecified back pain laterality (Primary Dx) Social History Tobacco Use Types Packs/Day Years Used Date Smoking Tobacco: Former Smokeless Tobacco: Never Comments Unknown Sex and Gender Information Value Date Recorded Sex Assigned at Not on file Legal Sex Female 8:47 PM RECREATIONAL RESORT MANAGER Gender Identity Not on file Sexual Orientation Not on file documented as of this encounter Last Filed Vital Signs Vital Sign Reading Time Taken Comments Blood Pressure 122/80 10/08/2025 5:01 PM RECREATIONAL RESORT MANAGER Pulse 98 10/08/2025 5:01 PM RECREATIONAL RESORT MANAGER Temperature 37.2 C (98.9 F) 10/08/2025 5:01 PM RECREATIONAL RESORT MANAGER Respiratory Rate 18 10/08/2025 5:01 PM RECREATIONAL RESORT MANAGER Oxygen Saturation 98% 10/08/2025 5:01 PM RECREATIONAL RESORT MANAGER Inhaled Oxygen Concentration - - Weight 88.5 kg (195 lb) 10/08/2025 5:01 PM RECREATIONAL RESORT MANAGER Height 167.6 cm (5' 6) 10/08/2025 5:01 PM RECREATIONAL RESORT MANAGER Body Mass Index 31.47 10/08/2025 5:01 PM RECREATIONAL RESORT MANAGER documented in this encounter Patient Instructions * Patient Instructions* Mandy Walker PA - 10/08/2025 4:45 PM RECREATIONAL RESORT MANAGER -heat, ice -light stretching, massage -take medication as directed, steroid pack starts tomorrow -follow up with pcp if symptoms persist -ER for new or worsening symptoms EATIONAL RESORT MANAGER * Attachments The following attachments cannot be sent through Care Everywhere. * Back Pain (AfterCare(R) Instructions(ER/ED)) (Bermudian) documented in this encounter Ordered Prescriptions Prescription Sig Dispense Quantity Refills Last Filled Start Date End Date methylPREDNISolone (MEDROL DOSEPACK) 4 mg Dosepack Take as directed on package. 21 tablet 10/08/2025 cyclobenzaprine (FLEXERIL) 10 mg tablet Take 1 tablet (10 mg total) by mouth 3 (three) times a day as needed for muscle spasms 20 tablet 10/08/2025 documented in this encounter Progress Notes * Mandy Walker PA - 10/08/2025 4:45 PM CST Images from the original note were not included. Subjective/Objective Patient ID: Shante Bay is a 45 y.o. female. This patient has verbally consented to recording this visit in order to utilize AI technology in generating this note. Chief Complaint Flank Pain (Lower back related, going around to the front. Started 1 week go /) History of Present Illness Shante Bay is a 45 year old female who presents with persistent lower back pain. Lower back pain - Persistent for a little over a week - Onset while shopping with her daughter - Pain localized to lower back with radiation around the hips - Described as crampy and stiff - Difficulty getting comfortable - Worsens with prolonged sitting and bending to put on boots - Improves somewhat with movement - Aleve, ibuprofen, and heating pad have not provided significant relief - Pain feels similar to prior UTI pain Urinary symptoms - No dysuria, frequency, urgency, or hesitancy - No fever, nausea, or vomiting - No recent injury - One episode of very bright yellow urine without new supplements - Increased water and cranberry juice intake since then Review of Systems All other systems reviewed and are negative. Physical Exam Physical Exam Constitutional: Appearance: Normal appearance. HENT: Head: Normocephalic and atraumatic. Right Ear: External ear normal. Left Ear: External ear normal. Nose: Nose normal. Mouth/Throat: Pharynx: Oropharynx is clear. Eyes: Pupils: Pupils are equal, round, and reactive to light. Cardiovascular: Rate and Rhythm: Normal rate. Pulmonary: Effort: Pulmonary effort is normal. Musculoskeletal: General: Normal range of motion. Cervical back: Normal range of motion. Comments: No ttp of lumbar area, normal gait Skin: General: Skin is warm and dry. Neurological: General: No focal deficit present. Mental Status: She is alert and oriented to person, place, and time. Psychiatric: Mood and Affect: Mood normal. Behavior: Behavior normal. Vitals: 10/08/25 1701 BP: 122/80 Pulse: 98 Resp: 18 Temp: 37.2 ??C (98.9 ??F) TempSrc: Continuous Temporal Temperature SpO2: 98% Weight: 88.5 kg (195 lb) Height: 167.6 cm (5' 6) No results found. Past Medical History: Diagnosis Date Bicuspid aortic valve Current Outpatient Medications: cyclobenzaprine (FLEXERIL) 10 mg tablet, Take 1 tablet (10 mg total) by mouth 3 (three) times a dayas needed for muscle spasms, Disp: 20 tablet, Rfl: 0 methylPREDNISolone (MEDROL DOSEPACK) 4 mg Dosepack, Take as directed on package., Disp: 21 tablet, Rfl: 0 TRI-SPRINTEC, 28, 0.18/0.215/0.25 mg-35 mcg (28) per tablet, Take by mouth daily (Patient not taking: Reported on 10/08/2025), Disp: , Rfl: No Known Allergies Social History Tobacco Use Smoking status: Former Smokeless tobacco: Never Substance and Sexual Activity Drug use: None Sexual activity: None Alcohol Use: Not on file Past Surgical History: Procedure Laterality Date AORTIC VALVE SURGERY Procedures Assessment/Plan Results Recent Results (from the past 4 hours) POCT urinalysis dipstick Collection Time: 10/08/25 5:09 PM Result Value Ref Range Color, Urine, POC Yellow Clarity, ur, POC Cloudy (A) Clear Glucose, ur, POC Negative Negative Bilirubin, ur, POC Negative Negative Ketones, ur, POC Trace (A) Negative Specific [place], POC 1.030 1.003 - 1.030 Blood, ur, POC Negative Negative pH, ur, POC 5.5 5.0 - 8.0 Protein, ur, POC Negative Negative Urobilinogen, urine, POC 0.2 0.2 - 1.0 mg/dL Nitrite, ur, POC Negative Negative Leukocytes, ur, POC Negative Negative Lot Number [id number] Assessment & Plan Acute low back pain, likely musculoskeletal in nature. No red flag symptoms. - Prescribed Flexeril - Prescribed Medrol Dose Pack - Continue ibuprofen or Aleve as needed. - Advised heat or ice for relief. - UA negative, Sent urine for culture. - Instructed to follow up if no improvement. - Advised ER visit if symptoms worsen. Diagnoses and all orders for this visit: Acute low back pain without sciatica, unspecified back pain laterality (Primary) - POCT urinalysis dipstick - Urine culture Urine, clean voided; Future Other orders - cyclobenzaprine (FLEXERIL) 10 mg tablet; Take 1 tablet (10 mg total) by mouth 3 (three) times a day as needed for muscle spasms - methylPREDNISolone (MEDROL DOSEPACK) 4 mg Dosepack; Take as directed on package. Disposition Treatment plan including expectations, follow up, and return precautions discussed with patient/parent, verbalizes understanding. Medication dosage, use, and potential adverse reactions discussed with patient/parent. Advised to follow up with PCP if symptoms do not resolve as expected or sooner if condition worsens. Signs/symptoms warranting ER evaluation reviewed. Patient and/or guardian was given an opportunity to ask questions, questions answered. JORGE Brunson EATIONAL RESORT MANAGER documented in this encounter Plan of Treatment Scheduled Orders Name Type Priority Associated Diagnoses Orde r Schedule Urine culture Urine, clean voided Microbiology Routine Acute low back pain without sciatica, unspecified back pain laterality Expected: 10/08/2025, Expires: 10/08/2026 documented as of this encounter Procedures Procedure Name Priority Date/Time Associated Diagnosis Comments POCT URINALYSIS DIPSTICK Routine 10/08/2025 5:09 PM RECREATIONAL RESORT MANAGER Acute low back pain without sciatica, unspecified back pain laterality documented in this encounter Results * (ABNORMAL) POCT urinalysis dipstick (10/08/2025 5:09 PM RECREATIONAL RESORT MANAGER) Color, Urine, POC Yellow Clarity, ur, POC Cloudy(A) Clear Glucose, ur, POC Negative Negative Bilirubin, ur, POC Negative Negative Ketones, ur, POC Trace(A) Negative Specific [place], POC 1.030 1.003 - 1.030 Blood, ur, POC Negative Negative pH, ur, POC 5.5 5.0 - 8.0 Protein, ur, POC Negative Negative Urobilinogen, urine, POC 0.2 0.2 - 1.0 mg/dL Nitrite, ur, POC Negative Negative Leukocytes, ur, POC Negative Negative Lot Number [id number] Urine 10/08/2025 5:09 PM RECREATIONAL RESORT MANAGER Mandy PATEL POINT OF CARE TEST ORDER LEONEL Final Result documented in this encounter Visit Diagnoses Diagnosis Acute low back pain without sciatica, unspecified back pain laterality- Primary documented in this encounter Care Teams Offset Printing Operator Relationship Specialty Start Date End Date Jory Paredes MD [address] [place] [address] [place] [address] PCP - General Family Medicine 08/31/24 Alvina Alarcon MD Referring Physician Cardiology 09/30/18 documented as of this encounter
--- OUTSIDE RECORDS SUMMARY | 2025-10-08 19:19 | XMS_ITS | Encounter Summary ---
Author Organization [facility] Healthcare Address [address] [place] [address] Care Team Providers Care Clinical Education Specialist Name Role Phone Alvina Alarcon MD Unavailable [phone] Jory Paredes MD Primary Care Provider + Encounter Details Date Type Department Care Team (Latest Contact Info) Description 10/08/2025 7:19 PM SKEINER - 10/08/2025 11:59 PM SKEINER Hospital Encounter [facility] [id number] [place] [address] Discharge Disposition: Discharge to home or self care Social History Tobacco Use Types Packs/Day Years Used Date Smoking Tobacco: Former Smokeless Tobacco: Never Comments Unknown Sex and Gender Information Value Date Recorded Sex Assigned at Not on file Legal Sex Female 8:47 PM SKEINER Gender Identity Not on file Sexual Orientation Not on file documented as of this encounter Medications at Time of Discharge cyclobenzaprine (FLEXERIL) 10 mg tablet Take 1 tablet (10 mg total) by mouth 3 (three) times a day as needed for muscle spasms 20 tablet 10/08/2025 methylPREDNISolo ne (MEDROL DOSEPACK) 4 mg Dosepack Take as directed on package. 21 tablet 10/08/2025 10/14/2025 TRI-SPRINTEC, 28, 0.18/0.215/0.25 mg-35 mcg (28) per tablet Take by mouth daily 09/30/2018 documented as of this encounter Discharge Disposition Disposition Code Departure Means Destination Discharge to home or self care documented in this encounter Plan of Treatment Pending Results Name Type Priority Associated Diagnoses Date /Time Urine culture Urine Microbiology Routine 8:00 PM SKEINER Scheduled Orders Name Type Priority Associated Diagnoses Orde r Schedule Urine culture Microbiology Routine Once for 1 Occurrences starting 10/08/2025 until 10/08/2025 documented as of this encounter Visit Diagnoses Not on filedocumented in this encounter Care Teams Clinical Education Specialist Relationship Specialty Start Date End Date Jory Paredes MD [facility] [facility] [address] PCP - General Family Medicine 08/31/24 Alvina Alarcon MD Referring Physician Cardiology 09/30/18 documented as of this encounter
--- OUTSIDE RECORDS SUMMARY | 2025-10-09 14:38 | XMS_ITS | Encounter Summary ---
Author Organization [facility] Address [address] [facility] [place] [address] Care Team Providers Care Applied Psychology Teacher Name Role Phone Unavailable Primary Care Provider [...] Care Team (Late st Contact Info) Description 08/04/2014 Telephone [facility] [address] [place] [address] Angela Yang Appointment (Called patient to [...]
--- OUTSIDE RECORDS SUMMARY | 2025-10-09 14:38 | XMS_ITS | Encounter Summary ---
Author Organization [facility] Healthcare Address [address] [place] [address] Care Team Providers Care Licensed Life And Health Agent Name Role Phone Desmond Harmon MD Primary Care Provider [phone] Alvina Alarcon MD Unavailable [phone] Jory Paredes MD Primary Care Provider + Encounter Details Date Type Department Care Team (Late st Contact Info) Description 03/26/[address] 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 Gender Identity Not on file Sexual Orientation Not on file documented as of this encounter Plan of Treatment Not on file documented as of this encounter Visit Diagnoses Not on filedocumented in this encounter Care Teams Licensed Life And Health Agent Relationship Specialty Start Date End Date Desmond Harmon MD [address] [place] [address] PCP - General 03/19/17 08/30/24 Jory Paredes MD [address] [place] [address] [place] [address] PCP - General Family Medicine 08/31/24 Alvina Alarcon MD [address] [place] [address] Referring Physician Cardiology 09/30/18 documented as of this encounter
--- OUTSIDE RECORDS SUMMARY | 2025-10-09 14:38 | XMS_ITS | Clinical Summary ---
Author Organization [facility] Address [address] [facility] [place] [address] Care Team Providers Care Acute Care Physical Therapist Name Role Phone Unavailable Primary Care Provider Unavailabl e Source Comments [facility],non-[facility] Affiliates and Associated Physician Practices is amultiple site organization consisting of ambulatory clinics and hospital sitesin [place], [place], [place]. This disclosure is being madepursuant to the Care Everywhere program and may not contain all information available regarding this patient. Last updated 18.[facility] Social History Tobacco Use Types Packs/Day Years [...] series) 2009 DEPRESSION SCREENING 10/12/2024 COVID-19 VACCINE (1 - 2024-2 6 season) 2025 INFLUENZA VACCINE (#1) 2025 ZOSTER [...] patient's age to complete this topic Insurance [facility] Address: [facility] [address] [place] [address] [facility] Address: [facility] [address] [place] [address] SELF PAY NO INSURANCE Member Subscriber Plan / Payer (Ef fective for All Dates) Name:Shante Grimaldo Member ID:Not on file Relation to Subscriber:Not on file Name:SHANTE GRIMALDO Subscriber ID:Not on file (Home) Address: [address] [place] [address] Payer ID:Not on file Group ID:Not on file Type:Self Pay Address: [place], [place] [employer]
--- OUTSIDE RECORDS SUMMARY | 2025-10-09 14:38 | XMS_ITS | Clinical Summary ---
Author Organization [facility] Address [address] [place] [address] Care Team Providers Care Secretarial Teacher Name Role Phone Alvina Alarcon MD Unavailable [phone] Jory Paredes MD Primary Care Provider + Allergies No known active allergies Medications TRI-SPRINTEC, 28, 0.18/0.215/0.25 mg-35 mcg (28) per tablet Take by mouth daily 09/30/2018 Active cyclobenzaprine (FLEXERIL) 10 mg tablet Take 1 tablet (10 mg total) by mouth 3 (three) times a day as needed for muscle spasms 20 tablet 10/08/2025 Active methylPREDNISol one (MEDROL DOSEPACK) 4 mg Dosepack Take as directed on package. 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 Encounters Date Type Department Care Team Description 10/08/2025 7:19 PM REGISTRATION MANAGER - 10/08/2025 11:59 PM REGISTRATION MANAGER Hospital Encounter [address] [id number] Discharge Disposition: Discharge to home or self care 10/08/2025 4:45 PM REGISTRATION MANAGER Office Visit [facility] [address] [address] Mandy Walker PA Acute low back pain without sciatica, unspecified back pain laterality (Primary Dx) from Last 3 Months Surgical History Surgery Date Site/Laterality Comments AORTIC [...] on file Legal Sex Female 8:47 PM REGISTRATION MANAGER Gender Identity Not on file Sexual Orientation Not on file Last Filed Vital Signs Vital Sign Reading Time Taken Comments Blood Pressure 122/80 10/08/2025 5:01 PM REGISTRATION MANAGER Pulse 98 10/08/2025 5:01 PM REGISTRATION MANAGER Temperature 37.2 C (98.9 F) 10/08/2025 5:01 PM REGISTRATION MANAGER Respiratory Rate 18 10/08/2025 5:01 PM REGISTRATION MANAGER Oxygen Saturation 98% 10/08/2025 5:01 PM REGISTRATION MANAGER Inhaled Oxygen Concentration - - Weight 88.5 kg (195 lb) 10/08/2025 5:01 PM REGISTRATION MANAGER Height 167.6 cm (5' 6) 10/08/2025 5:01 PM REGISTRATION MANAGER Body Mass Index 31.47 10/08/2025 5:01 PM REGISTRATION MANAGER Plan of Treatment Health Maintenance Due Date Last Done Comments Breast Cancer Screening-Mammogram 1982 Cervical Cancer Screening 1982 Depression Screening 1982 Hepatitis C Screening 1982 Varicella Vaccines (1 of 2 - 13+ 2-dose series) 1995 Hepatitis B Screening 2000 Regular Well Visit/Exam 18-64 2000 HPV Vaccines (1 - 3-dose SCDM series) 2009 Influenza Vaccine (#1) 2025 2, 07/24/2016, 09/11/2014, Additional history exists DTaP/Tdap/Td Vaccine (4 - Td or Tdap) 07/12/2035 07/12/2025, 12/21/2014, 12/11/2010 Pneumococcal vaccine <65 Aged Out 06/24/2022 No longer eligible based on patient's age to complete this topic Procedures Procedure Name Priority Date/Time Associated Diagnosis Comments POCT URINALYSIS DIPSTICK Routine 10/08/2025 5:09 PM REGISTRATION MANAGER Acute low back pain without sciatica, unspecified back pain laterality from Last 3 Months Results * (ABNORMAL) POCT urinalysis dipstick (10/08/2025 5:09 PM REGISTRATION MANAGER) Color, Urine, POC Yellow Clarity, ur, POC Cloudy(A) Clear Glucose, ur, POC Negative Negative Bilirubin, ur, POC Negative Negative Ketones, ur, POC Trace(A) Negative Specific [place], POC 1.030 1.003 - 1.030 Blood, ur, POC Negative Negative pH, ur, POC 5.5 5.0 - 8.0 Protein, ur, POC Negative Negative Urobilinogen, urine, POC 0.2 0.2 - 1.0 mg/dL Nitrite, ur, POC Negative Negative Leukocytes, ur, POC Negative Negative Lot Number [id number] Urine 10/08/2025 5:09 PM REGISTRATION MANAGER Mandy PATEL POINT OF CARE TEST ORDER LEONEL Final Result from Last 3 Months Insurance ANTHEM ACCESS CHOICE Member Subscriber Plan / Payer (Ef fective 2018-Present) Name:Shante Grimaldo Relation to Subscriber:Self Name:CameronfrantzShante villasenor Payer ID:[id number] (NAIC) Type:Nativo Address: [address] [facility] Address: [facility] [id number] [place] [address] [employer]UE [employer] OOS ANTHEM ACCESS [facility] ACCESS OOS ANTH [facility] Care Teams Secretarial Teacher Relationship Specialty Start Date End Date Jory Paredes MD [address] [place] [address] [place] [address] PCP - General Family Medicine 08/31/24 Alvina Alarcon MD Referring Physician Cardiology 09/30/18
[2025-10-09 19:23] LABS: Add Urine Microscopic? YES; Glucose Urine UA Trace mg/dL (Negative); Leukocyte Esterase Ur Negative LEU/UL (Negative); Need Manual Microscopic Reviewed; Nitrate Urine Negative (Negative); Non Pathogenic Casts 0-2; Specific Grav Ur 1.025 (1.001-1.035)
[2025-10-09 19:24] LABS: Appearance Urine Cloudy (Clear)
== END 2025-10-09 14:24 | disposition home or self-care (01) ==
LOC: ANHGOSHLAB 14:24
PROVIDERS: PCP Family Medicine; Visit Provider Student in an Organized Health Care Education/Training Program
DX: M54.9 Dorsalgia, unspecified (principal)
CPT/HCPCS: 81001